=== PATIENT | female | born 1980 | race African-American/Black ===

== ENCOUNTER → 2022-01-10 | Outpatient (CLI) | payer OTHER ==
--- NOTE | 2022-01-10 14:38 | RAD ---
EXAM: Chest, 2 views. HISTORY: Short of breath. COMPARISON: None. FINDINGS: 2 views of the chest are obtained. There is no infiltrate, pleural effusion or pneumothorax . There is a normal cardiac silhouette. There are slightly prominent central pulmonary vascular shado ws. IMPRESSION: No acute pulmonary finding. Electronically signed by: Ines Rojas MD (01/10/2022 2:36 PM) [id number]
== END ==
LOC: RAD 14:08
PROVIDERS: ATTEND Nurse Practitioner Family
DX: R06.02 Shortness of breath (principal)
CPT/HCPCS: 71046